=== PATIENT | female | born 1945 | race American Indian/Alaskan Native ===

== ENCOUNTER 2018-10-02 09:36 | Outpatient (CLI) | payer MEDICARE, OTHER | END 2018-10-02 09:37 | disposition home or self-care (01) | LOC: LAB 09:36 ==

== ENCOUNTER 2018-10-25 12:12 | Outpatient (CLI) | payer MEDICARE, OTHER | END 2018-10-25 12:13 | disposition home or self-care (01) | LOC: RAD 12:12 ==

== ENCOUNTER 2018-10-28 08:45 | Outpatient (CLI) | payer MEDICARE, OTHER | END 2018-10-28 08:46 | disposition home or self-care (01) | LOC: RAD 08:45 | DX: R10.9 Unspecified abdominal pain (principal) ==

== ENCOUNTER 2018-11-27 11:24 | Day surgery (SDC) | payer MEDICARE, OTHER ==
[2018-11-16 16:09] VITALS: BMI 35.4
[2018-11-27] MEDS ORDERED: Propofol 10 mg/ml Inj (20 ML) ONE ×3 (13:44→14:27)
[2018-11-27] MEDS ORDERED: Sodium Chloride 0.9% 1,000 ML IV SCH (15:00)
[2018-11-27 16:47] VITALS: BP 126/76; PULSE 85; RESP 18; TEMP 98.5; O2SAT 100
== END 2018-11-27 16:20 | disposition home or self-care (01) ==
LOC: ENDO 11:24
PROVIDERS: ATTEND Internal Medicine Gastroenterology
DX: K29.70 Gastritis, unspecified, without bleeding (principal); D12.0 Benign neoplasm of cecum; D12.4 Benign neoplasm of descending colon; D12.3 Benign neoplasm of transverse colon; K59.00 Constipation, unspecified; K57.30 Diverticulosis of large intestine without perforation or abscess without bleeding; K64.1 Second degree hemorrhoids; K64.4 Residual hemorrhoidal skin tags
CPT/HCPCS: 43239; 45380; 45385; 82948; 88305; 88342; J2001; J2704; J7030; J7040

== ENCOUNTER 2018-12-29 08:55 | Outpatient (CLI) | payer MEDICARE, OTHER | END 2018-12-29 08:56 | disposition home or self-care (01) | LOC: RAD 08:55 ==

== ENCOUNTER 2019-01-03 10:19 | Outpatient (CLI) | payer MEDICARE, OTHER | END 2019-01-03 10:20 | disposition home or self-care (01) | LOC: RAD 10:19 | DX: M54.5 Low back pain (principal); R05 Cough ==

== ENCOUNTER 2019-01-24 11:14 | Outpatient (CLI) | payer MEDICARE, OTHER | END 2019-01-24 11:15 | disposition home or self-care (01) | LOC: LAB 11:14 ==